=== PATIENT | female | born 1985 | race Caucasian/White ===

== ENCOUNTER 2016-08-24 16:46 | Emergency (ER) | payer MEDICAID ==
[~2016-08-24] VITALS: Ht 162.6 cm; Wt 75.0 kg
[~2016-08-24 16:46] MED LIST: CLIN1CAP6 PO; HYDR-3533 PO
[2016-08-24 16:48] VITALS: BP 105/59; PULSE 84; RESP 20; TEMP 98.6; O2SAT 98
[2016-08-24] MEDS ORDERED: AMOX500T PO (17:38)
[2016-08-24] MEDS ORDERED: PERI0.126 SWISH-SPIT (17:38)
[2016-08-24] MEDS ORDERED: IBUP800T23 PO (17:38)
[2016-08-24] MEDS ORDERED: MAGICADU2 SWISH-SPIT (17:38)
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
== END 2016-08-24 18:01 | disposition home or self-care (01) ==
LOC: NEPB 16:46
DX: S02.5XXA Fracture of tooth (traumatic), initial encounter for closed fracture (principal); J45.909 Unspecified asthma, uncomplicated; K02.9 Dental caries, unspecified; Y93.89 Activity, other specified; Y92.89 Other specified places as the place of occurrence of the external cause; Y99.8 Other external cause status; Y00.XXXA Assault by blunt object, initial encounter
CPT/HCPCS: 99283

== ENCOUNTER 2016-10-18 18:11 | Emergency (ER) | payer MEDICAID ==
[~2016-10-18] VITALS: Ht 165.1 cm; Wt 70.0 kg
[~2016-10-18 18:11] MED LIST changes: +AMOX500T PO; +IBUP800T23 PO; +MAGICADU2 SWISH-SPIT; +PERI0.126 SWISH-SPIT
[2016-10-18 18:18] VITALS: BP 125/68; PULSE 70; RESP 16; TEMP 98.2; O2SAT 100
[2016-10-18] MEDS ORDERED: SUBO8MIS SL (18:30)
--- NOTE | 2016-10-18 18:36 | PD ---
HPI . Dental pain and swelling for over one month Chief Complaint: Oral / Dental Pain or Problem Time Seen by Provider: 18:36 Travel History International Travel<30 days: No Contact w/Intl Traveler<30days: No Traveled to known affect area: No History of Present Illness HPI 31-year-old female who is 16 weeks here with complaints of dental pain and swelling to her left cheek and eye for over a month. Patient was seen in late August of this year here in the emergency department and was given antibiotics at that point. She is now on another round of antibiotics and her teeth and swelling are not improving. She says she has contacted numerous dentist and no one will take her insurance or they're telling her they will not touch a patient. She Is tearful and requesting something different. She has no allergies. She does not want anything for pain she just wants something to treat the infection and get rid of the swelling. She denies any fever or chills. PFSH Past Medical History Asthma: Yes Tetanus Vaccination: < 5 Years ?: LMP: 06/17/16 Past Surgical History Cholecystectomy: Yes Other Surgery: Yes (tumor removed from right breast) Social History Alcohol Use: No Tobacco Use: No Substance Use: No Allergies-Medications (Allergen,Severity, Reaction): Coded Allergies: No Known Allergies (Unverified , 10/18/16) Reported Meds & Prescriptions Reported Meds & Active Scripts Active Clindamycin (Clindamycin HCl) 300 Mg Cap 300 Mg PO TID Reported Suboxone Sublingual Film (Buprenorphine-Naloxone Sublingual Film) 8-2 Mg Film 1 Film SL Unique ID number required: Review of Systems General / Constitutional: No: Fever Eyes: No: Visual changes HENT: Positive: Dental Difficulties, No: Headaches Cardiovascular: No: Chest Pain or Discomfort Respiratory: No: Shortness of Breath Gastrointestinal: No: Abdominal Pain Genitourinary: No: Dysuria Musculoskeletal: No: Pain Skin: No Rash Neurologic: No: Weakness Psychiatric: No: Depression Endocrine: No: Polydipsia Hematologic/Lymphatic: No: Easy Bruising Physical Exam Narrative GENERAL: AAO x 3, no acute distress, Well-nourished, well-developed patient. SKIN: Warm and dry. No visible rashes or bruising. Some cheek swelling and erythema. There is also some left eye periorbital edema. HEAD: Normocephalic and atraumatic. EYES: No scleral icterus. No injection or drainage. EOM intact, PERRLA ENT: No nasal drainage noted. Mucous membranes pink. Airway patent. Upper left jaw #13, 14 and 15 with surrounding erythema, but no definitive abscess formation NECK: Supple, trachea midline. No JVD. CARDIOVASCULAR: Regular rate and rhythm without murmurs, gallops, or rubs. RESPIRATORY: Breath sounds equal bilaterally. No accessory muscle use. No rhonchi or rales. GASTROINTESTINAL: Abdomen soft, non-tender, nondistended. EXTREMITIES: No cyanosis or edema. BACK: Nontender without obvious deformity. No CVA tenderness. PSYCH: AAO x 3, normal affect. Data Data Last Documented VS Vital Signs Date Time Temp Pulse Resp B/P Pulse Ox O2 Delivery O2 Flow Rate FiO2 10/18/16 18:18 98.2 70 16 125/68 100 Orders Clindamycin Inj (Cleocin Inj) (10/18/16 18:45) [facility] Medical Decision Making Medical Screen Exam Complete: Yes Emergency Medical Condition: Yes Medical Record Reviewed: Yes Differential Diagnosis Oral cellulitis, oral abscess, dental caries Narrative Course 31-year-old female who is 16 weeks here with complaints of dental pain and swelling to her left cheek and eye for over a month. Patient was seen in late August of this year here in the emergency department and was given antibiotics at that point. She is now on another round of antibiotics and her teeth and swelling are not improving. She says she has contacted numerous dentist and no one will take her insurance or they're telling her they will not touch a patient. She Is tearful and requesting something different. She has no allergies. She does not want anything for pain she just wants something to treat the infection and get rid of the swelling. She denies any fever or chills. Patient seen and examined. Case discussed with Dr. Sr. IM clindamycin and oral clindamycin upon discharge. Had a discussion with patient and advised her that she will need to follow with oral, max -facial surgery. Advised her to try to recheck her insurance to see if they can find her provider. Discussed that she may need to consider roman pay options. Patient verbalized understanding of instructions, questions were answered, and thanked me for their care. I advised them if their condition worsens, please return to the nearest emergency room for further care. Diagnosis Primary Impression: Oral cellulitis Patient Instructions: Dental Abscess (ED), Dental Caries (DC), General Instructions Additional Instructions: Please return to emergency department if your symptoms return or worsen. Follow up with your primary care provider. Take medications as prescribed. Please follow-up with your SENIOR MAINTENANCE TECHNICIAN. They may have recommendations for dentist or oral surgeons will be able to see you. As we discussed, these teeth will need to be taken care of or else the infection will continue to come and go. Use Tylenol as needed for pain. Med/Other Pt SpecificInfo: Prescription(s) given Scripts Clindamycin 300 Mg [id number] Mg PO TID #21 CAP Prov:Cale Sr MD 10/18/16 Disposition: 01 DISCHARGE HOME Condition: Stable Blanca English Oct 18, 2016 18:36 Blanca English Oct 18, 2016 18:36
[2016-10-18] MEDS ORDERED: CLIN1CAP6 PO (18:43)
[2016-10-18] MEDS ORDERED: CLINDAMYCIN PHOS 300 MG/2 ML VIAL IM ONE (18:45)
== END 2016-10-18 19:40 | disposition home or self-care (01) ==
LOC: NEPB 18:11
DX: O99.612 Diseases of the digestive system complicating pregnancy, second trimester (principal); K12.2 Cellulitis and abscess of mouth; Z3A.16 16 weeks gestation of pregnancy
CPT/HCPCS: 96372

== ENCOUNTER 2016-12-08 23:52 | Emergency (ER) | payer MEDICAID ==
[~2016-12-08 23:52] MED LIST changes: -AMOX500T PO; -HYDR-3533 PO; -IBUP800T23 PO; -MAGICADU2 SWISH-SPIT; -PERI0.126 SWISH-SPIT; +SUBO8MIS SL
[2016-12-09 00:56] LABS: BACTERIA, URINE MANY /hpf; BLOOD, URINE MOD (NEG); COMMENT (UR) CULTURE INDICATED; CULTURE IF INDICATED CULTURE INDICATED; GLUCOSE,URINE NEG (NEG); GRANULAR CAST, URINE 17 /lpf; HYALINE CAST, URINE 17 /lpf (RARE); KETONE, URINE NEG (NEG); MUCUS URINE FEW /lpf (OCC); NITRITE,URINE NEG (NEG); RENAL EPITHELIAL CELLS 2 /hpf; SQUAMOUS EPITHELIAL CELL URINE 20 /hpf (0-5); URINE COLOR DARK-YELLOW (YELLW/STRAW)
[2016-12-09] MEDS ORDERED: cefTRIAXone INJ 2,000 MG in SODIUM CHLORIDE 0.9% INJ 100 ML IV ONE (01:00)
[2016-12-09] MEDS ORDERED: CEPH-460 PO (01:12)
--- NOTE | 2016-12-09 01:12 | PD ---
HPI Chief Complaint back pain, urinary frequency Date Seen: December 09, 2016 Time Seen: 00:30 Travel History International Travel<30 Days: No Contact w/Intl Traveler<30Days: No Known Affected Area: No History of Present Illness HPI Pt is a 31 y/o with IUP at 25.6 wks by stated CINDY (PNC with Dr Germain at [facility]) who presents with c/o low back pain, urinary frequency, dysuria. Pt states she awoke with sweating last night and thinks she had fever but did not take temperature. Pt reports she has been taking tylenol today. Pt denies vag bleeding, lof, contractions. She has had some mild nausea and decreased appetite but has been tolerating oral hydration all day today. Pt denies h/o pyelonephritis or UTI. Para: 1 : 4 Miscarriage: 1 : 1 History Past Medical History Narrative Medical asthma Obstetric History Obstetric History EAB x 1 SAB x 1 2012 FTSVD, no complications Past Surgical History Narrative Surgical D+C right breast lumpectomy benign cholecystectomy Family History Family History: Negative Social History Alcohol Use: No Tobacco Use: No Substance Abuse: No Allergies-Medications (Allergen,Severity, Reaction): Coded Allergies: No Known Allergies (Unverified , 10/18/16) Home Meds Active Scripts Cephalexin (Keflex)500 Mg Ulw036 Mg PO Q6H 7 Days Ref 0 Prov:Karolina Jane MD 12/09/16 Clindamycin 300 Mg Cns027 Mg PO TID #21 CAP Prov:Cale Sr MD 10/18/16 Reported Medications Buprenorphine-Naloxone Sublingual Film (Suboxone Sublingual Film)8-2 Mg Film1 Film SL Unique ID number required: 10/18/16 Narrative Medication subutex 6 mg bid klonopin 0.5 mg bid PNV Review of Systems General / Constitutional: No: Fever, Weight Gain, Weight Loss, Chills, Other Eyes: No: Diploplia, Blurred Vision, Visual changes, Pain, Photophobia, Other HENT: No: Headaches, Vertigo, Dental Difficulties, Lightheadedness, Other Cardiovascular: No: Irregular Rhythm, Chest Pain or Discomfort, Palpitations, Tachycardia, Syncope, Varicosities, Edema, Cyanosis, Other Respiratory: No: Cough, Short of Breath, Wheezing, Other Gastrointestinal: No: Nausea, Vomiting, Diarrhea, Abdominal Pain, Hematemesis, Hematochezia, Constipation, Changes in Bowel Habits, Indigestion, Loss of Appetite, Other Genitourinary: Urgency, Frequency, Dysuria, Decreased Urinary Output, No: Nocturia, Hematuria, Oliguria, Hesitancy, Dribbling, Incontinence, Pelvic Pain, Dyspareunia, Discharge, Menorrhagia, Vaginal Bleeding, Other Musculoskeletal: No: Limited ROM, Weakness, Cramping, Edema, Pain, Other Skin: No Rash, No Itching, No Dryness, No Lumps, No Change in Pigmentation, No Change in Nails, No Alopecia, No Lesions, No Breast Lumps, No Breast Tenderness , No Breast Swelling, No Other Neurologic: No: Weakness, Dizziness, Syncope, Focal Abnormalities, Coordination Problem, Headache, Slurred Speech, Seizures, Other Psychiatric: No: Anxiety, Depression, Suicidal Ideations, Disorder of Thought, Mood Disorder, Substance Abuse, Homicidal Ideation, Other Endocrine: No: Heat Intolerance, Cold Intolerance, Polydipsia, Polyuria, Other Hematologic/Lymphatic: No Easy Bruising, No Lymph Node Enlargement, No Other Physical Exam 87/35, 101, 16, 98.4 Narrative GENERAL: Well-nourished, well-developed patient. SKIN: Warm and dry. HEAD: Normocephalic and atraumatic. EYES: No scleral icterus. No injection or drainage. ENT: No nasal drainage noted. Mucous membranes pink. Airway patent. NECK: Supple, trachea midline. No JVD. CARDIOVASCULAR: Regular rate and rhythm without murmurs, gallops, or rubs. RESPIRATORY: Breath sounds equal bilaterally. No accessory muscle use. ABDOMEN/GI: Abdomen soft, non-tender, bowel sounds present, no rebound, no guarding Gravid GENITOURINARY: Membranes: intact Uterine Contractions: none FHT's: 140s EXTREMITIES: No cyanosis or edema. BACK: Nontender without obvious deformity. No CVA tenderness. NEUROLOGICAL: Awake and alert. Motor and sensory grossly within normal limits. Five out of 5 muscle strength in all muscle groups. Normal speech. Data Data Vital Signs Reviewed: Yes Orders Urinalysis - C+S If Indicated (12/09/16 00:08) Urine Culture (12/09/16 00:05) Ceftriaxone Inj (Rocephin Inj) (12/09/16 01:00) Labs Laboratory Tests Test 12/09/16 00:05 Urine Color DARK-YELLOW Urine Turbidity CLOUDY Urine pH 6.0 Urine Specific [place] 1.022 Urine Protein 300 Urine Glucose (UA) NEG Urine Ketones NEG Urine Occult Blood MOD Urine Nitrite NEG Urine Bilirubin NEG Urine Urobilinogen 2.0 Urine Leukocyte Esterase LARGE Urine RBC 31 Urine WBC Urine WBC Clumps FEW Urine Squamous Epithelial 20 Cells Urine Renal Epithelial Cells 2 Urine Bacteria MANY Urine Hyaline Casts 17 Urine Granular Casts 17 Urine Mucus FEW Microscopic Urinalysis Comment CULTURE INDICATED Date/Time Procedure Status Source Growth 12/09/16 00:05 Urine Culture Received Urine Clean Catch Pending MDM Narrative Course / MDM 31 y/o with IUP at 25.4 wks with UTI, possible early pyelonephritis --rocephin 2g IM x 1 now --rx for keflex 500 mg qid x 7 d --increase hydration until urine clear --return for temp > 101 or persistent/worsening symptoms after 24 hours --keep OB appt as scheduled Diagnosis Diagnosis: Primary Impression: Acute cystitis during in second trimester Additional Impression: 25 weeks gestation of Disposition: DISCHARGE HOME Condition: Stable Scripts Cephalexin (Keflex)500 Mg Vbp153 Mg PO Q6H 7 Days Ref 0 Prov:Karolina Jane MD 12/09/16 aKrolina Jane MD December 09, 2016 01:12
[2016-12-09] MEDS ORDERED: cefTRIAXone 500 MG VIAL IM ONE (02:00)
== END 2016-12-09 02:10 | disposition home or self-care (01) ==
LOC: HOBED 23:52
DX: O23.10 Infections of bladder in pregnancy, unspecified trimester (principal); M54.5 Low back pain; R50.9 Fever, unspecified; B96.20 Unspecified Escherichia coli [E. coli] as the cause of diseases classified elsewhere; Z3A.25 25 weeks gestation of pregnancy; J45.909 Unspecified asthma, uncomplicated
CPT/HCPCS: 81001; 87077; 87086; 87186; 96372; 99284; J0696